=== PATIENT | female | born 1980 | race Two or more races ===

== ENCOUNTER 2017-07-19 18:32 | Emergency (ER) | payer SELFPAY ==
[~2017-07-19] VITALS: Ht 162.6 cm; Wt 45.4 kg
--- NOTE | 2017-07-19 18:32 | NUR ---
TAMPON STUCKED X 2-3 DAYS
--- NOTE | 2017-07-19 19:14 | NUR ---
gave report to luis alfredo for shavonne
[2017-07-19 19:33] LABS: APPEARANCE,URINE Clear (CLEAR); BILIRUBIN,URINE Negative (NEGATIVE); BLOOD, URINE Moderate Ery/uL (NEGATIVE); COLOR,URINE Yellow (YELLOW); KETONES,URINE Negative (NEGATIVE); LEUKOCYTE ESTERASE ,URINE Moderate (NEGATIVE); NITRITE, URINE Negative (NEGATIVE); PH,URINE 7.5 (5.0-8.0); PROTEIN,URINE Negative (NEGATIVE); UGLUCOSE Negative (NEGATIVE); UROBILINOGEN,URINE 0.2 EU/dL (0.2)
[2017-07-19 19:46] LABS: BACTERIA,URINE Rare /HPF (None Seen); SQUAMOUS EPITHELIAL CELL,UR Few /HPF (None Seen); URINE AMORPHOUS PHOSPHATES Few /HPF (None Seen)
--- NOTE | 2017-07-19 19:49 | NUR ---
Patient discharged to home in stable condition. Written and verbal after care instructions given. Patient verbalizes understanding of instruction. Patient is ambulatory with steady gait, no further complaints.
[2017-07-19 19:50] VITALS: BP 120/78
== END 2017-07-19 19:51 | disposition home or self-care (01) ==
LOC: ER 18:35
DX: N39.0 Urinary tract infection, site not specified (principal)
CPT/HCPCS: 81001; 84703; 87086; 87491; 87591; 99284; A4606; Z7610; 81000-TC